=== PATIENT | female | born 2000 | race Caucasian/White ===

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

== ENCOUNTER 2023-10-16 13:19 | Emergency (ER) | payer OTHER ==
[~2023-10-16] VITALS: Ht 157.5 cm; Wt 40.9 kg
[2023-10-16 13:47] VITALS: TEMP 98.6
[2023-10-16] MEDS ORDERED: Ibuprofen 600 MG TAB PO ONE (15:00)
[2023-10-16] MEDS ORDERED: FLEXERIL 1010 MG/TAB PO (15:58)
[2023-10-16 16:30] VITALS: BP 112/79; PULSE 68
== END 2023-10-16 16:30 | disposition home or self-care (01) ==
LOC: COL.ER 13:19
DX: S16.1XXA Strain of muscle, fascia and tendon at neck level, initial encounter (principal); F17.200 Nicotine dependence, unspecified, uncomplicated; V89.2XXA Person injured in unspecified motor-vehicle accident, traffic, initial encounter; Y92.410 Unspecified street and highway as the place of occurrence of the external cause